=== PATIENT | male | born 1965 | race Asian ===

== ENCOUNTER 2018-03-01 15:36 | Emergency (ER) | payer OTHER ==
[~2018-03-01] VITALS: Ht 172.7 cm; Wt 80.3 kg
[2018-03-01] MEDS ORDERED: SALONPAS GEL-P1 EAC1 TOP (15:45)
[2018-03-01 16:12] LABS: ABSOLUTE EOSINOPHILS 0.3 thou/uL (0.0-0.7); ABSOLUTE LYMPHOCYTES 1.8 thou/uL (0.8-5.3); ABSOLUTE MONOCYTES 0.7 thou/uL (0.0-1.2); ABSOLUTE NEUTROPHILS 7.4 thou/uL (1.6-8.1); BASOPHILS 0.2 %; EOSINOPHILS 3.1 %; HEMATOCRIT 42.6 % (42.0-52.0); HEMOGLOBIN 13.9 gm/dL (14.0-18.0); LYMPHOCYTES 17.2 %; MCH 30.7 pg (26.0-34.0); MCHC 32.7 g/dL (28.0-37.0); MONOCYTES 6.8 %; MPV 9.6 fl. (7.2-11.1); NUCLEATED RBCS 0 /100WBC; PLATELET COUNT* 168 thou/uL (150-400); POLYS 72.7 %; RBC 4.53 mil/uL (4.50-6.00); WBC 10.2 thou/uL (4.0-11.0)
[2018-03-01 16:30] LABS: ANION GAP 6 mmol/L (7-16); BUN 12 mg/dL (7-18); CALCIUM 8.8 mg/dL (8.5-10.1); CHLORIDE 103 mmol/L (98-107); CO2 30 mmol/L (21-32); CREATININE 0.9 mg/dL (0.6-1.3); GLUCOSE 110 mg/dL (70-99); POTASSIUM 3.6 mmol/L (3.5-5.1); SODIUM 139 mmol/L (136-145)
[2018-03-01 16:34] LABS: ALBUMIN 3.9 g/dL (3.4-5.0); ALKALINE PHOSPHATASE 62 U/L (46-116); LIPASE 268 U/L (73-393); MAGNESIUM 1.8 mg/dL (1.8-2.4); SGOT 27 U/L (15-37); SGPT 27 U/L (30-65); TOTAL BILIRUBIN 0.5 mg/dL (<0.1-1.0); TOTAL PROTEIN 7.2 g/dL (6.4-8.2); TROPONIN-I LEVEL <0.06 ng/mL (<0.06)
[2018-03-01 17:00] VITALS: BP 139/91
--- NOTE | 2018-03-02 13:44 | EKG ---
[place] [address] ELECTROCARDIOGRAM REPORT Name: DONYA WOLF V Room: [facility]#: [id number] Admission: 03/01/18 Attend Phys: Discharge: 03/01/18 Date of : 63 Report #: [id number] THIS REPORT FOR: //name// [facility] ED Test Date: 2018-03-01 Test Time: 15:39:10 Pat Name: DONYA WOLF Department: Room: Gender: M Lobby Porter: RIGO : 1965 Requested By: Earl Mijares Order Number: [id number] MD: Norris Harris Measurements Intervals [place] Rate: 75 P: 70 [place]: 147 QRS: 16 QRSD: 99 T: -7 QT: 379 QTc: 424 Interpretive Statements Sinus rhythm Borderline T abnormalities, inferior leads Compared to ECG 03/28/2007 14:46:05 no change Electronically Signed On 03-02-2018 13:44:01 SURGICAL ELASTIC KNITTER HAND FRAME by Norris Harris [email or web address] <ELECTRONICALLY SIGNED> By: Norris Harris MD, [facility] 03/02/18 [id number] Norris Harris MD, FACC /EPI
== END 2018-03-01 17:04 | disposition left against medical advice (07) ==
LOC: M.ERS 15:36
PROVIDERS: Emergency Medicine Emergency Medical Services
DX: R07.89 Other chest pain (principal)